=== PATIENT | male | born 1970 ===

== ENCOUNTER 2018-10-31 18:47 | Outpatient (CLI) | payer OTHER | END 2018-10-31 18:48 | disposition home or self-care (01) | LOC: C.SLEEP 18:48 | DX: G47.33 Obstructive sleep apnea (adult) (pediatric) (principal) ==

== ENCOUNTER 2019-01-03 12:14 | Outpatient (CLI) | payer OTHER | END 2019-01-03 12:15 | disposition home or self-care (01) | LOC: C.MRIC 12:14 ==